=== PATIENT | female | born 1995 | race African-American/Black ===

== ENCOUNTER 2022-09-09 21:14 | Emergency (ER) | payer BC ==
[~2022-09-09] VITALS: Ht 175.3 cm; Wt 97.8 kg
[2022-09-09] MEDS ORDERED: ALBUTEROL (0.083%) 2.5MG/3ML NEB HHN STA (21:47)
[2022-09-09] MEDS ORDERED: PREDNISONE 20MG TABLET PO STA (21:47)
[2022-09-09] MEDS ORDERED: IPRATROPIUM BROMIDE (0.02%) 0.5MG/2.5ML NEB HHN STA (21:47)
[2022-09-09] MEDS ORDERED: ONDANSETRON 4MG ODT PO ONE (22:45)
[2022-09-09] MEDS ORDERED: ALBUTEROL 6.7GM HFA INHALER ORI ONE (22:45)
[2022-09-09] MEDS ORDERED: P50 PO (23:28)
[2022-09-09] MEDS ORDERED: ALBUTEROL 6.7GM HFA INHALER ORI NR (23:30)
[2022-09-09 23:47] VITALS: BP 117/74
== END 2022-09-09 23:49 | disposition home or self-care (01) ==
LOC: ER 21:14
DX: J45.901 Unspecified asthma with (acute) exacerbation (principal); R06.02 Shortness of breath; Z20.822 Contact with and (suspected) exposure to COVID-19
CPT/HCPCS: 71045; 87426; 87804; 94640; 99284; C9803; J7512; Q0162; Z7610